=== PATIENT | male | born 1950 | race Caucasian/White ===

== ENCOUNTER 2017-10-09 10:39 | Inpatient (IN) | payer MEDICARE, OTHER, BC ==
[2017-10-09] MEDS: SOD CHLORIDE 0.9% 1,000 ML IV ×2 (11:03→15:19)
[2017-10-09] MEDS: ONDANSETRON 4 MG INJ IV (11:03)
[2017-10-09 11:35] LABS: ADD MAN DIFF? NO
[2017-10-09 11:38] LABS: WHITE BLOOD COUNT 7.7 10^3/ul (4.8-10.8)
[2017-10-09 11:38] LABS: BASOPHILS % 0.4 % (0.0-2.0); EOSINOPHILS # 0.2 10^3/ul (0.0-0.5); EOSINOPHILS % 2.6 % (0.0-7.0); HEMATOCRIT 34.8 % (42.0-52.0); HEMOGLOBIN 11.4 g/dl (14.0-18.0); LYMPHOCYTES # 2.8 10^3/ul (0.8-2.9); LYMPHOCYTES % 36.6 % (15.0-51.0); MEAN CORPUSCULAR HEMOGLOBIN 28.2 pg (29.0-33.0); MEAN CORPUSCULAR HGB CONC 32.8 g/dl (32.0-37.0); MEAN CORPUSCULAR VOLUME 86.1 fl (82.0-101.0); MONOCYTE # 0.3 10^3/ul (0.3-0.9); MONOCYTES % 3.2 % (0.0-11.0); NEUTROPHIL # 4.4 10^3/ul (1.6-7.5); NEUTROPHILS % 56.9 % (39.0-77.0); PLATELET COUNT 168 10^3/UL (140-415); RED BLOOD COUNT 4.04 10^6/ul (4.70-6.10); RED CELL DISTRIBUTION WIDTH 14.3 % (11.5-14.5)
[2017-10-09 12:01] LABS: ALANINE AMINOTRANSFERASE 24 IU/L (13-69); ALBUMIN 4.4 g/dl (3.3-4.9); ALBUMIN/GLOBULIN RATIO 1.15; ALKALINE PHOSPHATASE 68 IU/L (42-121); ANION GAP 20 (8-16); ASPARTATE AMINO TRANSFERASE 20 IU/L (15-46); BILIRUBIN,INDIRECT 0.6 mg/dl (0-1.1); BILIRUBIN,TOTAL 0.6 mg/dl (0.2-1.3); BLOOD UREA NITROGEN 26 mg/dl (7-20); CALCIUM 9.2 mg/dl (8.4-10.2); CARBON DIOXIDE 24 mmol/L (21-31); CHLORIDE 100 mmol/L (97-110); CREATININE 1.51 mg/dl (0.61-1.24); GLUCOSE 255 mg/dl (70-220); INR 1.08; POTASSIUM 3.7 mmol/L (3.5-5.1); PROTIME 14.1 Sec (11.9-14.9); PT RATIO 1.1; SODIUM 140 mmol/L (135-144); TOTAL PROTEIN 8.2 g/dl (6.1-8.1)
[2017-10-09 12:18] LABS: B-TYPE NATRIURETIC PEPTIDE 807 PG/ML (0-125)
[2017-10-09 12:21] LABS: TROPONIN-I < 0.012 ng/ml (0.000-0.120)
[2017-10-09 12:22] LABS: ADD UMIC YES; UR ASCORBIC ACID NEGATIVE (NEGATIVE); UR BILIRUBIN (Dip) NEGATIVE (NEGATIVE); UR BLOOD (Dip) NEGATIVE (NEGATIVE); UR CLARITY CLEAR (CLEAR); UR COLOR STRAW (YELLOW); UR GLUCOSE (Dip) 1+ mg/dL (NEGATIVE); UR KETONES (Dip) NEGATIVE (NEGATIVE); UR LEUKOCYTE ESTERASE (Dip) NEGATIVE Leu/ul (NEGATIVE); UR NITRITE (Dip) NEGATIVE (NEGATIVE); UR RBC 0 /HPF (0-5); UR SPECIFIC GRAVITY (Dip) 1.009 (1.003-1.030); UR TOTAL PROTEIN (Dip) 1+ mg/dl (NEGATIVE); UR UROBILINOGEN (Dip) NEGATIVE (NEGATIVE); UR WBC 1 /HPF (0-5)
[2017-10-09] MEDS ORDERED: ONDANSETRON 4 MG INJ IV ×2 (14:00→14:30)
[2017-10-09] MEDS ORDERED: ACETAMINOPHEN 325 MG TAB PO ×2 (14:00→14:30)
[2017-10-09 14:06] LABS: HEMOGLOBIN A1C 5.1 % (0-5.9)
[2017-10-09] MEDS ORDERED: NACL 0.9% 3 ML SYG IV (14:30)
[2017-10-09] MEDS ORDERED: MAGNESIUM HYDROXIDE 30ML CUP PO (14:30)
[2017-10-09] MEDS ORDERED: HYDROCODONE/APAP (5/325) TAB PO (14:30)
[2017-10-09] MEDS ORDERED: LABETALOL HCL 20MG INJ IV (14:30)
[2017-10-09] MEDS ORDERED: DOCUSATE SODIUM 100 MG CAP PO (14:30)
[2017-10-09] MEDS ORDERED: BISACODYL (EC) 5 MG TAB PO (14:30)
[2017-10-09] MEDS ORDERED: LORAZEPAM 0.5 MG TAB PO (14:30)
[2017-10-09] MEDS ORDERED: GLUCOSE GEL 15 GRAM TUBE BUCCAL (15:00)
[2017-10-09] MEDS ORDERED: GLUCOSE GEL 15 GRAM TUBE PO ×2 (15:00)
[2017-10-09] MEDS ORDERED: GLUCAGON 1 MG INJ IM (15:00)
[2017-10-09] MEDS ORDERED: DEXTROSE 50% 50 ML SYRINGE IV ×2 (15:00)
[2017-10-09] MEDS: INSULIN ASPART [NOVOLOG] 3 ML PEN SC ×2 (16:56→21:00)
[2017-10-09 18:05] LABS: CREATINE KINASE 73 IU/L (23-200)
[2017-10-09 18:14] LABS: CK INDEX 2.6
[2017-10-09 18:18] LABS: CK-MB 1.87 ng/ml (0.0-2.4)
[2017-10-09 18:19] LABS: TROPONIN-I 0.128 ng/ml (0.000-0.120)
[2017-10-09] MEDS ORDERED: INSULIN GLARGINE [LANtus] 3 ML PEN SC (20:00)
[2017-10-09] MEDS: ATORVASTATIN 20 MG TAB PO (21:03)
[2017-10-09 23:55] LABS: CREATINE KINASE 75 IU/L (23-200)
[2017-10-10 00:06] LABS: CK INDEX 2.7
[2017-10-10 00:07] LABS: CK-MB 2.03 ng/ml (0.0-2.4); TROPONIN-I 0.289 ng/ml (0.000-0.120)
[2017-10-10] MEDS: ACCU-CHEK XX (02:00)
[2017-10-10 05:49] LABS: ADD MAN DIFF? NO
[2017-10-10 05:54] LABS: BASOPHILS % 0.5 % (0.0-2.0); EOSINOPHILS # 0.3 10^3/ul (0.0-0.5); EOSINOPHILS % 3.5 % (0.0-7.0); HEMATOCRIT 32.4 % (42.0-52.0); HEMOGLOBIN 10.4 g/dl (14.0-18.0); LYMPHOCYTES # 2.6 10^3/ul (0.8-2.9); MEAN CORPUSCULAR HGB CONC 32.1 g/dl (32.0-37.0); MEAN CORPUSCULAR VOLUME 87.3 fl (82.0-101.0); MEAN PLATELET VOLUME 10.9 fl (7.4-10.4); MONOCYTE # 0.4 10^3/ul (0.3-0.9); MONOCYTES % 4.9 % (0.0-11.0); NEUTROPHIL # 4.6 10^3/ul (1.6-7.5); NEUTROPHILS % 57.8 % (39.0-77.0); PLATELET COUNT 182 10^3/UL (140-415); RED BLOOD COUNT 3.71 10^6/ul (4.70-6.10); RED CELL DISTRIBUTION WIDTH 14.6 % (11.5-14.5)
[2017-10-10 06:21] LABS: ALANINE AMINOTRANSFERASE 26 IU/L (13-69); ALBUMIN 3.6 g/dl (3.3-4.9); ALBUMIN/GLOBULIN RATIO 1.09; ALKALINE PHOSPHATASE 53 IU/L (42-121); ANION GAP 14 (8-16); ASPARTATE AMINO TRANSFERASE 21 IU/L (15-46); BILIRUBIN,INDIRECT 0.3 mg/dl (0-1.1); BILIRUBIN,TOTAL 0.3 mg/dl (0.2-1.3); BLOOD UREA NITROGEN 22 mg/dl (7-20); CALCIUM 8.9 mg/dl (8.4-10.2); CARBON DIOXIDE 29 mmol/L (21-31); CHLORIDE 106 mmol/L (97-110); GLUCOSE 102 mg/dl (70-220); MAGNESIUM 2.2 mg/dl (1.7-2.5); POTASSIUM 3.6 mmol/L (3.5-5.1); SODIUM 145 mmol/L (135-144); TOTAL PROTEIN 6.9 g/dl (6.1-8.1)
[2017-10-10] MEDS: INSULIN ASPART [NOVOLOG] 3 ML PEN SC ×4 (07:35→21:00)
[2017-10-10] MEDS: VALSARTAN 160 MG TAB PO (09:38)
[2017-10-10] MEDS: ASPIRIN 325 MG TAB PO (09:38)
[2017-10-10] MEDS: AMLODIPINE 10 MG TAB PO (09:39)
[2017-10-10] MEDS: METOPROLOL (XL) 25 MG TAB PO (09:39)
[2017-10-10] MEDS: HEPARIN 1000 UNITS/ML 10 ML INJ IV ×2 (09:41→17:24)
[2017-10-10 09:51] LABS: ADD MAN DIFF? NO
[2017-10-10 10:02] LABS: BASOPHILS % 0.4 % (0.0-2.0); EOSINOPHILS # 0.2 10^3/ul (0.0-0.5); EOSINOPHILS % 2.9 % (0.0-7.0); HEMATOCRIT 34.6 % (42.0-52.0); HEMOGLOBIN 11.1 g/dl (14.0-18.0); LYMPHOCYTES # 2.4 10^3/ul (0.8-2.9); LYMPHOCYTES % 31.9 % (15.0-51.0); MEAN CORPUSCULAR HGB CONC 32.1 g/dl (32.0-37.0); MEAN CORPUSCULAR VOLUME 87.4 fl (82.0-101.0); MEAN PLATELET VOLUME 10.4 fl (7.4-10.4); MONOCYTE # 0.3 10^3/ul (0.3-0.9); MONOCYTES % 3.9 % (0.0-11.0); NEUTROPHIL # 4.6 10^3/ul (1.6-7.5); NEUTROPHILS % 60.8 % (39.0-77.0); PLATELET COUNT 178 10^3/UL (140-415); RED BLOOD COUNT 3.96 10^6/ul (4.70-6.10); RED CELL DISTRIBUTION WIDTH 14.5 % (11.5-14.5)
[2017-10-10 10:02] LABS: WHITE BLOOD COUNT 7.6 10^3/ul (4.8-10.8)
[2017-10-10 10:30] LABS: INR 0.99; PROTIME 13.2 Sec (11.9-14.9)
[2017-10-10 10:31] LABS: TROPONIN-I 0.207 ng/ml (0.000-0.120)
[2017-10-10 10:31] LABS: PARTIAL THROMBOPLASTIN TIME 42.1 Sec (25.0-35.0)
[2017-10-10] MEDS: HEPARIN 25000 UNITS/250 ML 250 ML IV ×2 (10:53→17:26)
[2017-10-10] MEDS: SOD CHLORIDE 0.9% 1,000 ML IV (11:00)
[2017-10-10 16:50] LABS: PARTIAL THROMBOPLASTIN TIME 44.5 Sec (25.0-35.0)
[2017-10-10 17:04] LABS: TROPONIN-I 0.164 ng/ml (0.000-0.120)
[2017-10-10] MEDS: ATORVASTATIN 20 MG TAB PO (21:21)
[2017-10-10] MEDS: METOPROLOL 25 MG TAB PO (21:22)
[2017-10-11] MEDS: hydrALAzine 20 MG INJ IV (00:24)
[2017-10-11] MEDS: HEPARIN 25000 UNITS/250 ML 250 ML IV ×3 (00:41→12:52)
[2017-10-11] MEDS: ACCU-CHEK XX (02:00)
[2017-10-11 06:32] LABS: ADD MAN DIFF? NO
[2017-10-11 06:36] LABS: BASOPHILS % 0.5 % (0.0-2.0); EOSINOPHILS # 0.2 10^3/ul (0.0-0.5); EOSINOPHILS % 2.9 % (0.0-7.0); HEMATOCRIT 35.3 % (42.0-52.0); HEMOGLOBIN 11.4 g/dl (14.0-18.0); LYMPHOCYTES # 2.3 10^3/ul (0.8-2.9); LYMPHOCYTES % 28.9 % (15.0-51.0); MEAN CORPUSCULAR HEMOGLOBIN 28.4 pg (29.0-33.0); MEAN CORPUSCULAR HGB CONC 32.3 g/dl (32.0-37.0); MEAN CORPUSCULAR VOLUME 87.8 fl (82.0-101.0); MEAN PLATELET VOLUME 10.3 fl (7.4-10.4); MONOCYTE # 0.5 10^3/ul (0.3-0.9); MONOCYTES % 5.9 % (0.0-11.0); NEUTROPHIL # 4.9 10^3/ul (1.6-7.5); NEUTROPHILS % 61.5 % (39.0-77.0); PLATELET COUNT 185 10^3/UL (140-415); RED BLOOD COUNT 4.02 10^6/ul (4.70-6.10); RED CELL DISTRIBUTION WIDTH 14.1 % (11.5-14.5)
[2017-10-11 07:07] LABS: INR 1.03; PROTIME 13.6 Sec (11.9-14.9); PT RATIO 1.1
[2017-10-11 07:08] LABS: PARTIAL THROMBOPLASTIN TIME 49.3 Sec (25.0-35.0)
[2017-10-11 07:09] LABS: PLATELET COUNT 205 10^3/UL (140-415)
[2017-10-11 07:11] LABS: THROMBIN TIME 20.4 SEC (13.8-19.1)
[2017-10-11 07:14] LABS: ANION GAP 14 (8-16); BLOOD UREA NITROGEN 20 mg/dl (7-20); CALCIUM 8.7 mg/dl (8.4-10.2); CARBON DIOXIDE 27 mmol/L (21-31); CHLORIDE 107 mmol/L (97-110); CHOL/HDL RATIO 7.3 RATIO; CHOLESTEROL 184 mg/dl (100-200); CREATININE 1.23 mg/dl (0.61-1.24); GLUCOSE 106 mg/dl (70-220); HDL CHOLESTEROL 25 mg/dl (30-78); LDL CHOLESTEROL,CALCULATED 111 mg/dl; POTASSIUM 3.8 mmol/L (3.5-5.1); SODIUM 144 mmol/L (135-144); TRIGLYCERIDES 241 mg/dl (0-149)
[2017-10-11] MEDS: INSULIN ASPART [NOVOLOG] 3 ML PEN SC ×4 (07:55→21:00)
[2017-10-11] MEDS: ASPIRIN 325 MG TAB PO (08:14)
[2017-10-11] MEDS: AMLODIPINE 10 MG TAB PO (08:14)
[2017-10-11] MEDS: METOPROLOL 25 MG TAB PO ×2 (08:15→21:06)
[2017-10-11] MEDS ORDERED: ASPIRIN 81 MG TAB PO (09:00)
[2017-10-11] MEDS: ATORVASTATIN 20 MG TAB PO (21:05)
== END 2017-10-11 21:42 | disposition left against medical advice (07) | DRG 281 ==
LOC: TEL 10-10 23:31 → E/R 10:39 → MS3 14:29
PROVIDERS: Internal Medicine
DX: R55 Syncope and collapse (principal); I21.A1 Myocardial infarction type 2; N17.9 Acute kidney failure, unspecified; N18.9 Chronic kidney disease, unspecified; I95.9 Hypotension, unspecified; R73.9 Hyperglycemia, unspecified; I35.0 Nonrheumatic aortic (valve) stenosis; I13.10 Hypertensive heart and chronic kidney disease without heart failure, with stage 1 through stage 4 chronic kidney disease, or unspecified chronic kidney disease
CPT/HCPCS: 36415; 71045; 80048; 80053; 80061; 81001; 82550; 82553; 82962; 83036; 83735; 83880; 84484; 85025; 85049; 85610; 85670; 85730; 93005; 93306; 96374; 99285-25